=== PATIENT | female | born 1980 | race Caucasian/White ===

== ENCOUNTER 2025-03-15 20:15 | Emergency (ER) | payer OTHER, SELFPAY ==
[2025-03-15 20:20] VITALS: BP 131/87
[2025-03-15 20:40] LABS: Hematocrit 40.2 % (37.0-47.0); Hemoglobin 14.0 g/dL (12.0-16.0); Mean Corp Hgb Conc. 34.8 g/dL (33.0-37.0); Mean Corpuscular Volume 81.5 fL (81.0-99.0); Nucleated Red Blood Cells % 0 %; Platelet Count 276 10^3/uL (130-400); Red Cell Dist. Width 12.1 % (11.5-14.5)
[2025-03-15 21:01] LABS: ALT (SGPT) 29 U/L (0-35); AST (SGOT) 26 U/L (14-36); Albumin 4.8 g/dl (3.5-5.0); Alkaline Phosphatase 70 U/L (38-126); Blood Urea Nitrogen 21 mg/dl (7-17); Calcium 9.3 mg/dl (8.4-10.2); Carbon Dioxide 27 mmol/L (22-30); Chloride 100 mmol/L (98-107); Glucose 81 mg/dl (70-99); Potassium 4.0 mmol/L (3.5-5.1); Sodium 134 mmol/L (135-145); Total Protein 7.3 g/dl (6.3-8.2); eGFR > 60.00
[2025-03-15 21:14] LABS: Troponin I 0.018 ng/ml
[2025-03-16 00:46] VITALS: BP 134/78
== END 2025-03-16 00:46 ==
LOC: EMR 20:15
PROVIDERS: Emergency Medicine; FAMILY PHYSICIAN Family Medicine
DX: R07.89 Other chest pain (principal)
CPT/HCPCS: 80053; 84484; 85025; 93005